=== PATIENT | male | born 1985 | race American Indian/Alaskan Native ===

== ENCOUNTER 2021-01-25 02:45 | Emergency (ER) | payer SELFPAY ==
--- NOTE | 2021-01-25 03:05 | Emergency Department Report ---
Chief Complaint: Overdose Stated Complaint: OVERDOSE Time Seen by Provider: 01/25/21 03:02 - HPI History of Present Illness: This is a 35-year-old male here for possible overdose. Patient reports that he did not take any pills or do any drugs. He does note that he drink alcohol. He states he does not wish to stay for any additional evaluation and he has no medical complaints at this time. - Exam Physical Exam: Patient is alert in no acute distress His head shows no evidence of trauma. Neck is supple Patient is in no respiratory distress Patient has well-perfused extremities The range of motion of extremities is normal and patient has no evidence of trauma to the extremities. Neuro: Patient is awake alert oriented x4. He is ambulating with a steady gait. MSE screening note: Focused history and physical exam performed. Due to findings the following was ordered: Patient does not wish to stay for any additional evaluation. ED Disposition for MSE Condition: Stable
== END 2021-01-25 03:20 ==
LOC: ED 02:45
DX: T65.91XA Toxic effect of unspecified substance, accidental (unintentional), initial encounter (principal); Y92.89 Other specified places as the place of occurrence of the external cause; Z72.89 Other problems related to lifestyle
CPT/HCPCS: 99283